=== PATIENT | female | born 1955 | race Caucasian/White ===

== ENCOUNTER 2016-11-08 11:00 | Day surgery (SDC) | payer OTHER ==
[2016-11-07 11:13] LABS: BASOPHILS # (AUTO) 0.1 K/uL (0.0-0.2); BASOPHILS % (AUTO) 0.8 % (0.0-2.0); EOSINOPHILS # (AUTO) 0.1 K/uL (0.0-0.4); EOSINOPHILS % (AUTO) 1.3 % (0.0-4.0); HEMATOCRIT 41.1 % (36-48); HEMOGLOBIN 13.6 g/dL (12.0-16.0); LYMPHOCYTES # (AUTO) 0.8 K/uL (1.0-5.5); LYMPHOCYTES % (AUTO) 12.6 % (20.5-51.5); MEAN CORPUSCULAR HEMOGLOBIN 28 pg (27-31); MEAN CORPUSCULAR HGB CONC 33 % (32-36); MEAN CORPUSCULAR VOLUME 84 fL (79.0-98.0); MONOCYTES # (AUTO) 0.4 K/uL (0.0-1.0); MONOCYTES % (AUTO) 5.5 % (1.7-9.3); NEUTROPHILS # (AUTO) 5.2 K/uL (1.8-7.7); NEUTROPHILS % (AUTO) 79.8 % (40.0-70.0); PLATELET COUNT (AUTO) 294 K/uL (130-430); RED CELL DISTRIBUTION WIDTH 15.3 % (9.0-15.0); WHITE BLOOD COUNT (AUTO) 6.6 K/uL (4.8-10.8)
[2016-11-07 11:15] LABS: CALCIUM 9.1 mg/dL (8.4-11.0); CREATININE 0.64 mg/dL (0.55-1.30); POTASSIUM 4.3 mmol/L (3.5-5.1)
[2016-11-07 11:24] LABS: ALBUMIN 3.6 g/dL (3.4-4.8); TOTAL BILIRUBIN 0.3 mg/dL (0.0-1.0); TOTAL PROTEIN, SERUM 7.3 g/dL (6.4-8.3)
[~2016-11-08] VITALS: Ht 154.9 cm; Wt 88.0 kg
[~2016-11-08 11:00] MED LIST: CEFAZOLIN SOD 1 GM in D5W 50 ML IV ONE
[2016-11-08] MEDS ORDERED: BUPIVACAINE /EPINEPHRINE/PF 0.25% 30 ML VIAL INJ ONE (12:31)
[2016-11-08] MEDS ORDERED: KETOROLAC TROMETHAMINE 30 MG VIAL IVP ONE (12:31)
[2016-11-08] MEDS ORDERED: SEVOFLURANE 15 MIN GAS INH ONE (12:31)
[2016-11-08] MEDS ORDERED: fentaNYL CITRATE/PF 100 MCG/2 ML AMP IVP ONE (12:31)
[2016-11-08] MEDS ORDERED: WATER FOR IRRIGATION,STERILE 1,000 ML IRRIG.SOLN IR ONE (12:31)
[2016-11-08] MEDS ORDERED: ONDANSETRON HCL 4 MG/2 ML VIAL IVP ONE (12:31)
[2016-11-08] MEDS ORDERED: MIDAZOLAM HCL 5 MG/5 ML VIAL IVP ONE (12:31)
[2016-11-08] MEDS ORDERED: LR 1,000 ML IV.SOLN IV ONE (12:31)
[2016-11-08] MEDS ORDERED: PROPOFOL 200MG/ 20ML VIAL (DIPRIVAN) IV ONE (12:31)
[2016-11-08] MEDS ORDERED: LR 1,000 ML IV SCH (13:18)
[2016-11-08] MEDS ORDERED: KETOROLAC TROMETHAMINE 30 MG VIAL IVP PRN (13:30)
[2016-11-08] MEDS ORDERED: MEPERIDINE HCL/PF 25 MG/ML DISP.SYRIN IVP PRN ×2 (13:30)
[2016-11-08] MEDS ORDERED: ONDANSETRON HCL 4 MG/2 ML VIAL IVP PRN ×2 (13:30→15:00)
[2016-11-08] MEDS ORDERED: HYDROmorphone 2 MG/ML VIAL IVP PRN ×3 (13:30→15:00)
[2016-11-08] MEDS ORDERED: HYDROmorphone 1 MG INJ. 1 MG/ML AMPUL IVP PRN (13:30)
[2016-11-08] MEDS ORDERED: ACETAMINOPHEN 325 MG TABLET PO PRN ×2 (15:00)
[2016-11-08] MEDS ORDERED: MORPHINE 4 MG/ML INJ. SYRINGE IVP PRN (15:00)
[2016-11-08] MEDS ORDERED: HYDROmorphone 1 MG INJ. 1 MG/ML AMPUL ONE (15:27)
[2016-11-08 15:45] VITALS: BP_SYST 121
--- NOTE | 2016-11-08 15:45 | NUR ---
PATIENT RECEIVED FROM PACU Patient is awake, alert oriented x4, no neural deficites noted. pateint VSS, breathing even and unlabored. dressing on the chest clean dry and intact. Patient with 2 benitez drains that are empty and compressed at this time. IV intact, 20g no sign of infiltration noted. Patient has scd bilaterally. deanas inventoried. Family members are at bedside. Educated online marketing specialist light reach. and to call for assistance.
--- NOTE | 2016-11-08 17:00 | NUR ---
Incentive spirometer educated and return demonstration noted, family at bedside encouraging her to perform the excersise every hour.
--- NOTE | 2016-11-08 17:30 | NUR ---
Patient and family educated With return demonstration on how to empty the benitez drains and record them. gave family the BENITEZ recording paper and educated them that they need to record the amount every time they empty them and to check them every 2 to 3 hours. Patients sister in law actually emptied and recorded the benitez amount. good return demonstration.
[2016-11-08] MEDS: NACL 0.9% 1,000 ML IV SCH (18:24)
[2016-11-08] MEDS: CEFAZOLIN 1 GM IVPB PREMIX 50 ML IV SCH (18:24)
--- NOTE | 2016-11-08 19:01 | NUR ---
Closing note Patient infusing dose 2 of three of Ancef. Stable, all needs met
[2016-11-08 20:00] VITALS: BP_SYST 109
--- NOTE | 2016-11-08 20:00 | NUR ---
PM ASSESSMENT: PATIENT IN BED AWAKE,ALERT/ORIENTED X4. MANY FAMILIES AT BEDSIDE.HAS SLIGHT POST OP PAIN.INCISIONS WITH ABDOMINAL BINDER. HAS 2 KOKO WITH SEROSANGUINOS COLOR ,SMALL AMT. THIS TIME. IVF SITE CLEAR.IV INFUSING AT 100ML/HR. VITAL SIGNS TAKEN ,STABLE. HEART RATE REGULAR PER RADIAL PALPATION .PEDAL PULSES AUDIBLE ,NO LEG EDEMA, WITH SCD ON. USING SOCKS. VOIDING FREELY. REFUSE PAIN MED THIS TIME.CALL LIGHT WITH IN REACH. BED IN LOW POSITION. INSTRUCTIONS GIVEN ON CALLING ANY TIME FOR NEEDS /FEELING NOT GOOD/PAIN / GOES TO BATHROOM WITH UNDERSTANDING. WILL MONITOR CLOSELY.FALL PRECAUTIONS OBSERVED.
--- NOTE | 2016-11-08 21:15 | NUR ---
ELIMINATIONS: ASSISTED PATIENT TO BATHROOM WITH STEADY GAIT. VOIDED AND HAS MOD. AMT STOOL. OFFERED PAIN MED BUT REFUSE. EXPLAINED IMPORTANCE OF PAIN MEDS., SAID LATER I AM OKAY.INCENTIVE SPIROMETER USED.
--- NOTE | 2016-11-08 22:30 | NUR ---
EXPLAIN NEED OF TURNING. REFUSE THIS TIME.FEELS COMFORTABLE.
--- NOTE | 2016-11-08 23:30 | NUR ---
ROUNDS: PATIENT RESTING QUITELY WITH EYES CLOSE. BREATHING PATTERN REGULAR.
[2016-11-09] VITALS: BP_SYST 114
--- NOTE | 2016-11-09 00:25 | NUR ---
ROUNDS: WOKE PATIENT UP FOR VITAL SIGNS THEN ASSISTED TO BATHROOM TO VOID WITHOUT PROBLEM.
--- NOTE | 2016-11-09 00:55 | NUR ---
PAIN: AGREED TO HAVE PAIN PILL.LEVEL 6/10 .
[2016-11-09] MEDS: HYDROcodone/ACETAMIN 5-325 MG TAB (NORCO/ VICODIN) PO PRN ×2 (00:57→17:17)
[2016-11-09] MEDS: CEFAZOLIN 1 GM IVPB PREMIX 50 ML IV SCH (01:44)
--- NOTE | 2016-11-09 02:00 | NUR ---
ROUNDS: PATIENT SOUND ASLEEP. BREATHING PATTERN REGULAR.IVF INFUSING WELL. FAMILIES AT BEDSIDE.
--- NOTE | 2016-11-09 03:20 | NUR ---
PATIENT WOKE UP DUE TO IV PUMP LOUD ALARM. ASSISTED TO BATHROOM TO VOID WITH STEADY GAIT.. OFFERED PAIN MEDS ,REFUSE.
[2016-11-09 04:00] VITALS: BP_SYST 117
--- NOTE | 2016-11-09 05:30 | NUR ---
PATIENT RESTING DURING ROUNDS.
[2016-11-09] MEDS: NACL 0.9% 1,000 ML IV SCH ×2 (06:38→10:55)
--- NOTE | 2016-11-09 07:15 | NUR ---
CLOSING: AWAKENED. ASSISTED TO BATHROOM TO VOID.DID HER AM CARE. HAS POSTOP PAIN. NO ACUTE DISTRESS. ALL NEEDS WERE MET.
--- NOTE | 2016-11-09 07:50 | NUR ---
AM NOTES ASSISTED TO THE BATHROOM AND VOIDED. COMPLAINS OF 7/10 PAIN LEVEL ON THE SURGICAL SITE. WILL MEDICATED. DRESSING DRY AND INTACT WITH ABDOMINAL BINDER ON WITH KOKO DRAIN X2 DRAINING SEROSANGUINOUS DRAINAGE. ON IVF INFUSING WELL. FAMILY AT BEDSIDE. WILL MONITOR.
[2016-11-09 08:00] VITALS: BP_SYST 116
--- NOTE | 2016-11-09 09:00 | NUR ---
Nutrition Update Reji Scale 16 noted. 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 Diet: regular BMI: 36.7 kg/m2 RD to follow per nutrition care standards.
--- NOTE | 2016-11-09 10:27 | NUR ---
ROUNDS RESTING IN BED AT THIS TIME. NO DISTRESS NOTED. FAMILY AT BEDSIDE. PAIN CONTROLLED.
[2016-11-09 12:00] VITALS: BP_SYST 110
[2016-11-09 16:00] VITALS: BP_SYST 116
--- NOTE | 2016-11-09 16:26 | NUR ---
MD CALLED SPOKE TO DR. GUERRERO. STATED TO DISCHARGE PT WITH KOKO DRAIN. PER MD HE ALREADY TALK TO THEM ABOUT APPOINMENT. MD AWARE OF TOTAL OUTPUT OF KOKO DRAIN SINCE YESTERDAY.
--- NOTE | 2016-11-09 16:29 | NUR ---
KOKO DRAIN TEACH PT ON HOW TO DRAIN KOKO AND TO PUT SUNCTION. PT AND FAMILY VERBALIZE UNDERSTANDING.
[2016-11-09 16:40] VITALS: BP_SYST 116
--- NOTE | 2016-11-09 17:15 | NUR ---
D/C INSTRUCTION AND PRESCRIPTION GIVEN AND DISCUSSED TO PT AND FAMILY. INFORMED PT TO CALL FOR APPOINMENT TO DR. GUERRERO INSTRUCTED. PTS A LITTLE BIT DISAPPOINTED BECAUSE HE DID NOT TALK TO DR. GUERRERO. INFORMED PT TO CALL DR. PATEL DR. GUERRERO INSTRUCTED. PT'S AMBULATE STEADY TO THE BATHROOM. ARM BAND AND IVL REMOVED.
--- NOTE | 2016-11-09 17:17 | NUR ---
PAIN PT REQUESTED FOR PAIN MEDICINE BEFORE SHE LEAVE. PT WANTS NORCO. NORCO GIVEN. FAMILY AT BEDSIDE.
== END 2016-11-09 17:17 | disposition home or self-care (01) ==
LOC: SDS 11:00 → SMU 11:01 → EDSTATUS 13:00 → SMU 15:44 → SDS 11-09 17:17
PROVIDERS: ATTEND Surgery
DX: C50.912 Malignant neoplasm of unspecified site of left female breast (principal)
CPT/HCPCS: 19307; 36415; 71020; 80053; 85025; 86886; 86900; 86901; 88307; 93005; J0690 ×2; J1170; J1885; J2250; J2270; J2405; J2704; J3010; J3490; J7030 ×2; J7060; J7120; 88309